=== PATIENT | female | born 1940 | race Caucasian/White ===

== ENCOUNTER 2017-01-04 16:14 | Outpatient (CLI) | payer MEDICARE ==
[2017-01-04 16:52] LABS: ALT (SGPT) 26 U/L (8-55); AST (SGOT) 16 U/L (5-34); Albumin 4.1 g/dL (3.4-4.8); Alkaline Phosphatase 70 U/L (40-150); Bilirubin, Direct 0.2 mg/dL (0.1-0.3); Bilirubin, Total 0.6 mg/dL (0.2-1.2); Protein, Total 6.8 g/dL (6.0-8.3)
== END 2017-01-04 16:15 | disposition home or self-care (01) ==
LOC: BURLAB 16:14
PROVIDERS: ATTEND Podiatrist
DX: B49 Unspecified mycosis (principal)
CPT/HCPCS: 36415; 80076

== ENCOUNTER 2017-03-01 16:32 | Outpatient (CLI) | payer MEDICARE ==
[2017-03-01 17:28] LABS: ALT (SGPT) 23 U/L (8-55); AST (SGOT) 13 U/L (5-34); Albumin 4.5 g/dL (3.4-4.8); Alkaline Phosphatase 66 U/L (40-150); Bilirubin, Direct 0.2 mg/dL (0.1-0.3); Bilirubin, Total 0.4 mg/dL (0.2-1.2); Protein, Total 6.8 g/dL (6.0-8.3)
== END 2017-03-01 16:33 | disposition home or self-care (01) ==
LOC: BURLAB 16:32
PROVIDERS: ATTEND Podiatrist
DX: B35.1 Tinea unguium (principal)
CPT/HCPCS: 36415; 80076

== ENCOUNTER 2021-04-13 06:39 | Emergency (ER) | payer MEDICARE ==
[2021-04-13 07:43] LABS: #Basophils 0.1 thou/uL (0.0-0.2); #Eosinphils 0.1 thou/uL (0.0-0.7); #Lymphocytes 1.4 thou/uL (1.20-3.40); #Monocytes 0.4 thou/uL (0.11-0.59); #Neutrophils 4.9 thou/uL (1.40-6.50); %Basophils 1.5 % (0.0-1.0); %Eosinophils 1.2 % (0.0-10.0); %Lymphocytes 20.9 % (21.0-51.0); %Monocytes 5.1 % (0.0-10.0); %Neutrophils 71.2 % (42.0-75.0); Hemoglobin 13.5 g/dL (12.0-16.0); Mean Corpuscular HGB CONC 34.4 g/dL (32.0-36.0); Mean Corpuscular Hemoglobin 33.1 pg (27.0-31.0); Mean Corpuscular Volume 96.3 fL (78.0-98.0); Mean Platelet Volume 6.8 fL (7.4-10.4); Platelet Count 208 thou/uL (130-400); RBC Distribution Width 12.4 % (11.5-14.5); Red Blood Cell (RBC) Count 4.09 mill/uL (4.20-5.40); White Blood Cell (WBC) Count 6.9 thou/uL (4.8-10.8)
[2021-04-13 08:16] LABS: ALT (SGPT) 14 U/L (8-55); AST (SGOT) 13 U/L (5-34); Alkaline Phosphatase 61 U/L (40-110); Anion Gap 12 mmol/L (10-20); BUN (Urea Nitrogen) 15 mg/dL (9.8-20.1); Bilirubin, Total 0.5 mg/dL (0.2-1.2); CK (CPK) 27 U/L (29-168); Calc. Creatinine Clearance 0 mL/min (70-130); Calcium 9.3 mg/dL (7.8-10.44); Carbon Dioxide 31 mmol/L (23-31); Chloride 103 mmol/L (98-107); Globulin 2.5 g/dL (2.4-3.5); Glucose 123 mg/dL (83-110); Potassium 3.8 mmol/L (3.5-5.1); Protein, Total 6.5 g/dL (5.8-8.1); Sodium 142 mmol/L (136-145)
[2021-04-13] MEDS ORDERED: Aspirin 325 MG TAB ONE (08:17)
[2021-04-13 08:39] LABS: Digoxin Less than 0.15 ng/mL (0.8-2.0)
[2021-04-13 10:13] LABS: SARS-CoV-2 NAA Rapid Test Not Detected (NotDetected)
== END 2021-04-13 10:10 | disposition short-term general hospital (02) ==
LOC: BURERS 06:39
DX: I63.9 Cerebral infarction, unspecified (principal); R29.702 NIHSS score 2; J01.90 Acute sinusitis, unspecified; Z20.822 Contact with and (suspected) exposure to COVID-19; I11.0 Hypertensive heart disease with heart failure; I50.9 Heart failure, unspecified; E11.9 Type 2 diabetes mellitus without complications; I42.9 Cardiomyopathy, unspecified; Z79.899 Other long term (current) drug therapy; Z79.84 Long term (current) use of oral hypoglycemic drugs; Z79.82 Long term (current) use of aspirin
CPT/HCPCS: 70450; 80053; 80162; 82550; 84484; 85025; 93005; 99285; U0002; 36415

== ENCOUNTER 2021-04-18 18:08 | Inpatient (IN) | payer MEDICARE ==
[2021-04-18 19:24] VITALS: BMI 28.4
[2021-04-18] MEDS ORDERED: Acetaminophen 325 MG TAB PO PRN (22:14)
[2021-04-18] MEDS ORDERED: Bisacodyl 10 MG SUPP PR PRN (22:14)
[2021-04-18] MEDS ORDERED: Bisacodyl 5 MG TAB PO PRN (22:14)
[2021-04-19] MEDS ORDERED: Losartan Potassium 50 MG TAB PO SCH (09:00)
[2021-04-19] MEDS: Calcium Carbonate 600 MG + Vit D TAB PO SCH (09:03)
[2021-04-19] MEDS: Aspirin 81 mg Enteric Coated Tablet PO SCH (09:03)
[2021-04-19] MEDS: metFORMIN XR 500 MG TAB PO SCH (09:03)
[2021-04-19] MEDS: Clopidogrel Bisulfate 75 MG TAB PO SCH (09:04)
[2021-04-19] MEDS: Furosemide 40 MG TAB PO SCH (09:04)
[2021-04-19] MEDS: Losartan Potassium 50 MG TAB PO SCH (09:04)
[2021-04-19] MEDS: Carvedilol 25 MG TAB PO SCH ×2 (09:04→17:54)
[2021-04-19] MEDS: Multivit, Therapeutic 1 TAB PO SCH (09:04)
[2021-04-19] MEDS: Floranex 1 GM Packet PO SCH (09:05)
[2021-04-19] MEDS: Rosuvastatin 10 MG TAB PO SCH (20:41)
[2021-04-20] MEDS: Multivit, Therapeutic 1 TAB PO SCH (08:04)
[2021-04-20] MEDS: Aspirin 81 mg Enteric Coated Tablet PO SCH (08:04)
[2021-04-20] MEDS: Losartan Potassium 50 MG TAB PO SCH (08:05)
[2021-04-20] MEDS: Floranex 1 GM Packet PO SCH (08:06)
[2021-04-20] MEDS: Carvedilol 25 MG TAB PO SCH ×2 (08:06→18:06)
[2021-04-20] MEDS: Loratadine 10 MG TAB PO PRN (08:06)
[2021-04-20] MEDS: Calcium Carbonate 600 MG + Vit D TAB PO SCH (08:06)
[2021-04-20] MEDS: Clopidogrel Bisulfate 75 MG TAB PO SCH (08:06)
[2021-04-20] MEDS: metFORMIN XR 500 MG TAB PO SCH (08:06)
[2021-04-20] MEDS: Furosemide 40 MG TAB PO SCH (08:06)
[2021-04-20] MEDS: Fluticasone Propionate Nasal Spray 16 gm Bottle NASAL PRN (08:07)
[2021-04-20] MEDS: Rosuvastatin 10 MG TAB PO SCH (20:28)
[2021-04-20] MEDS: Guaifenesin DM 100-10/5 ML UDCUP PO PRN (21:22)
[2021-04-21] MEDS: Guaifenesin DM 100-10/5 ML UDCUP PO PRN ×2 (05:15→21:15)
[2021-04-21] MEDS: Fluticasone Propionate Nasal Spray 16 gm Bottle NASAL PRN (08:55)
[2021-04-21] MEDS: metFORMIN XR 500 MG TAB PO SCH (08:56)
[2021-04-21] MEDS: Aspirin 81 mg Enteric Coated Tablet PO SCH (08:56)
[2021-04-21] MEDS: Furosemide 40 MG TAB PO SCH (08:56)
[2021-04-21] MEDS: Carvedilol 25 MG TAB PO SCH ×2 (08:56→17:41)
[2021-04-21] MEDS: Losartan Potassium 50 MG TAB PO SCH (08:56)
[2021-04-21] MEDS: Multivit, Therapeutic 1 TAB PO SCH (08:56)
[2021-04-21] MEDS: Calcium Carbonate 600 MG + Vit D TAB PO SCH (08:57)
[2021-04-21] MEDS: Clopidogrel Bisulfate 75 MG TAB PO SCH (08:57)
[2021-04-21] MEDS: Floranex 1 GM Packet PO SCH (08:57)
[2021-04-21] MEDS: Loratadine 10 MG TAB PO PRN (08:57)
[2021-04-21] MEDS: Albuterol Sulfate 2.5 mg/3 ml Neb NEB PRN ×2 (13:10→21:12)
[2021-04-21 13:53] LABS: SARS-CoV-2 PCR by NAA Not Detected (NotDetected)
[2021-04-21] MEDS: Rosuvastatin 10 MG TAB PO SCH (21:14)
[2021-04-21] MEDS: Amoxicillin/Potassium Clav 875 MG TAB PO SCH (21:15)
[2021-04-22] MEDS: Guaifenesin DM 100-10/5 ML UDCUP PO PRN ×2 (08:09→20:23)
[2021-04-22] MEDS: Amoxicillin/Potassium Clav 875 MG TAB PO SCH ×2 (08:10→20:23)
[2021-04-22] MEDS: Floranex 1 GM Packet PO SCH (08:10)
[2021-04-22] MEDS: Aspirin 81 mg Enteric Coated Tablet PO SCH (08:10)
[2021-04-22] MEDS: Furosemide 40 MG TAB PO SCH (08:10)
[2021-04-22] MEDS: metFORMIN XR 500 MG TAB PO SCH (08:11)
[2021-04-22] MEDS: Carvedilol 25 MG TAB PO SCH ×2 (08:11→17:41)
[2021-04-22] MEDS: Multivit, Therapeutic 1 TAB PO SCH (08:11)
[2021-04-22] MEDS: Losartan Potassium 50 MG TAB PO SCH (08:11)
[2021-04-22] MEDS: Clopidogrel Bisulfate 75 MG TAB PO SCH (08:11)
[2021-04-22] MEDS: Calcium Carbonate 600 MG + Vit D TAB PO SCH (08:13)
[2021-04-22] MEDS: Albuterol Sulfate 2.5 mg/3 ml Neb NEB PRN ×2 (12:24→19:26)
[2021-04-22] MEDS: Rosuvastatin 10 MG TAB PO SCH (20:23)
[2021-04-22] MEDS: Fluticasone Propionate Nasal Spray 16 gm Bottle NASAL PRN (20:26)
[2021-04-23] MEDS: metFORMIN XR 500 MG TAB PO SCH (08:24)
[2021-04-23] MEDS: Floranex 1 GM Packet PO SCH (08:24)
[2021-04-23] MEDS: Multivit, Therapeutic 1 TAB PO SCH (08:25)
[2021-04-23] MEDS: Losartan Potassium 50 MG TAB PO SCH (08:25)
[2021-04-23] MEDS: Amoxicillin/Potassium Clav 875 MG TAB PO SCH (08:25)
[2021-04-23] MEDS: Calcium Carbonate 600 MG + Vit D TAB PO SCH (08:25)
[2021-04-23] MEDS: Aspirin 81 mg Enteric Coated Tablet PO SCH (08:25)
[2021-04-23] MEDS: Clopidogrel Bisulfate 75 MG TAB PO SCH (08:26)
[2021-04-23] MEDS: Carvedilol 25 MG TAB PO SCH ×2 (08:26→16:55)
[2021-04-23] MEDS: Furosemide 40 MG TAB PO SCH (08:26)
[2021-04-23] MEDS: Fluticasone Propionate Nasal Spray 16 gm Bottle NASAL PRN (08:26)
[2021-04-23 17:56] VITALS: BP 142/69; TEMP 98.6
[2021-04-25] MEDS ORDERED: ALENDRONATE SODIUM 70 MG PO SCH (09:00)
== END 2021-04-23 17:40 | disposition home health service (06) | DRG 57 ==
LOC: BURMED 20:13
PROVIDERS: ADMIT Family Medicine; ATTEND Family Medicine
DX: I69.354 Hemiplegia and hemiparesis following cerebral infarction affecting left non-dominant side (principal); I50.9 Heart failure, unspecified; E11.9 Type 2 diabetes mellitus without complications; I11.0 Hypertensive heart disease with heart failure; I73.9 Peripheral vascular disease, unspecified; Z20.822 Contact with and (suspected) exposure to COVID-19; Z88.2 Allergy status to sulfonamides; Z88.8 Allergy status to other drugs, medicaments and biological substances
CPT/HCPCS: 36416; 71046; J7611; U0003; U0005

== ENCOUNTER 2022-12-22 10:29 | Outpatient (CLI) | payer MEDICARE ==
[2022-12-22 11:06] LABS: ALT (SGPT) 23 U/L (8-55); AST (SGOT) 25 U/L (5-34); Albumin 4.2 g/dL (3.4-4.8); Alkaline Phosphatase 64 U/L (40-110); Bilirubin, Direct 0.3 mg/dL (0.1-0.3); Cardiac Risk 2.5 (Less than 4.5); Cholesterol 143 mg/dl (< 200 Desired); HDL Cholesterol 58 mg/dL (>60 Neg Risk); LDL Cholesterol, Calculated 68 mg/dL; Protein, Total 7.1 g/dL (5.8-8.1); Triglycerides 87 mg/dL (Less than 150)
== END 2022-12-22 10:30 | disposition home or self-care (01) ==
LOC: BURRAD 10:29
PROVIDERS: ATTEND Family Medicine
DX: J45.40 Moderate persistent asthma, uncomplicated (principal); E78.2 Mixed hyperlipidemia
CPT/HCPCS: 36415; 71046; 80061; 80076

== ENCOUNTER 2023-07-08 10:51 | Emergency (ER) | payer MEDICARE | END 2023-07-08 12:08 | disposition home or self-care (01) | LOC: BURERS 10:51 | DX: B30.9 Viral conjunctivitis, unspecified (principal); I11.0 Hypertensive heart disease with heart failure; I50.9 Heart failure, unspecified; E11.9 Type 2 diabetes mellitus without complications; Z79.84 Long term (current) use of oral hypoglycemic drugs; Z79.899 Other long term (current) drug therapy; Z79.82 Long term (current) use of aspirin | CPT/HCPCS: 99282 ==

== ENCOUNTER 2023-11-22 10:46 | Outpatient (CLI) | payer MEDICARE | END 2023-11-22 10:47 | disposition home or self-care (01) | LOC: BURRAD 10:46 | PROVIDERS: ATTEND Family Medicine | DX: R05.3 Chronic cough (principal); R60.0 Localized edema; J98.4 Other disorders of lung | CPT/HCPCS: 71046 ==

== ENCOUNTER 2024-03-28 05:46 | Emergency (ER) | payer MEDICARE ==
[2024-03-28 06:17] LABS: #Basophils 0.1 thou/uL (0.0-0.2); #Eosinophils 0.1 thou/uL (0.0-0.7); #Lymphocytes 1.6 thou/uL (1.20-3.40); #Monocytes 0.4 thou/uL (0.11-0.59); #Neutrophils 3.4 thou/uL (1.40-6.50); %Basophils 1.1 % (0.0-1.0); %Eosinophils 1.2 % (0.0-10.0); %Lymphocytes 29.4 % (21.0-51.0); %Monocytes 7.8 % (0.0-10.0); %Neutrophils 60.5 % (42.0-75.0); Hemoglobin 14.5 g/dL (12.0-16.0); Mean Corpuscular HGB CONC 32.9 g/dL (32.0-36.0); Mean Corpuscular Hemoglobin 31.3 pg (27.0-31.0); Mean Corpuscular Volume 95.3 fl (78.0-98.0); Platelet Count 230 10x3/uL (130-400); RBC Distribution Width 11.8 % (11.5-14.5); Red Blood Cell (RBC) Count 4.62 mill/uL (4.20-5.40); White Blood Cell (WBC) Count 5.5 10x3/uL (4.8-10.8)
[2024-03-28 06:33] LABS: ALT (SGPT) 25 U/L (8-55); AST (SGOT) 16 U/L (5-34); Albumin 4.1 g/dL (3.4-4.8); Alkaline Phosphatase 60 U/L (40-110); Anion Gap 14 mmol/L (10-20); BUN (Urea Nitrogen) 17 mg/dL (9.8-20.1); Bilirubin, Total 0.7 mg/dL (0.2-1.2); Calc. Creatinine Clearance 0 mL/min (70-130); Calcium 9.7 mg/dL (7.8-10.44); Carbon Dioxide 29 mmol/L (23-31); Chloride 102 mmol/L (98-107); Estimated GFR 86; Globulin 3.2 g/dL (2.4-3.5); Glucose 180 mg/dL (83-110); Potassium 3.9 mmol/L (3.5-5.1); Protein, Total 7.3 g/dL (5.8-8.1); Sodium 141 mmol/L (136-145)
[2024-03-28 06:41] LABS: INR-International Normal Ratio 0.9; PTT 26.1 sec (22.9-36.1)
== END 2024-03-28 07:13 | disposition home or self-care (01) ==
LOC: BURERS 05:46
DX: R09.82 Postnasal drip (principal); R04.0 Epistaxis; I11.0 Hypertensive heart disease with heart failure; I50.9 Heart failure, unspecified; E11.9 Type 2 diabetes mellitus without complications
CPT/HCPCS: 36415; 80053; 85025; 85610; 85730; 99283